=== PATIENT | male | born 1940 ===

== ENCOUNTER → 2024-07-31 23:59 | Outpatient (BNV) | payer MEDICARE, SELFPAY | PROVIDERS: Visit Provider Internal Medicine Cardiovascular Disease | DX: I21.01 ST elevation (STEMI) myocardial infarction involving left main coronary artery (principal); I21.02 ST elevation (STEMI) myocardial infarction involving left anterior descending coronary artery; I21.11 ST elevation (STEMI) myocardial infarction involving right coronary artery | CPT/HCPCS: 33967; 92941; 92944; 93458; 93503; 99152 ==